=== PATIENT | male | born 1970 | race African-American/Black ===

== ENCOUNTER 2016-05-21 15:16 | Inpatient (IN) | payer MEDICARE, MEDICAID, OTHER ==
[~2016-05-21] VITALS: Ht 188 cm; Wt 114.0 kg
[~2016-05-21 15:16] MED LIST: MESA400C PO; RISP3 PO; TRAZ-147 PO; VITAD1000 PO
[2016-05-21] MEDS ORDERED: QUET25TA PO (15:43)
[2016-05-21 16:00] LABS: BASOPHILS % (AUTO) 0.4 % (0.0-2.0); EOSINOPHILS % (AUTO) 3.3 % (1.0-6.0); HEMATOCRIT 47.1 % (41-53); HEMOGLOBIN 15.4 g/dL (13.5-17.5); LYMPHOCYTES # (AUTO) 2.3 K/uL (1.0-4.8); MEAN CORPUSCULAR HEMOGLOBIN 29.8 pg (26.0-34.0); MEAN CORPUSCULAR HGB CONC 32.6 G/dL (31.0-37.0); MEAN CORPUSCULAR VOLUME 91 fL (80-100); MONOCYTES # (AUTO) 0.4 K/uL (0.1-1.0); MONOCYTES % (AUTO) 7.1 % (2.0-9.0); NEUTROPHILS # (AUTO) 3.3 K/uL (1.8-7.7); NEUTROPHILS % (AUTO) 53.2 % (40.0-70.0); PLATELET COUNT (AUTO) 228 K/uL (150-450); RED BLOOD CELL COUNT(AUTO) 5.16 MIL/uL (4.50-5.90); RED CELL DISTRIBUTION WIDTH 16.2 % (11.5-14.5); WHITE BLOOD COUNT (AUTO) 6.3 K/uL (4.5-11.0)
[2016-05-21 16:13] LABS: ANION GAP 9 mmol/L (8-16); CALCIUM, TOTAL 9.2 mg/dL (8.8-10.5); CARBON DIOXIDE 29 mmol/L (22-29); CHLORIDE 103 mmol/L (98-107); CREATININE 1.14 mg/dL (0.60-1.30); GLOMERULAR FILTR. RATE CALC > 60 mL/min (>60); POTASSIUM 3.3 mmol/L (3.5-5.1); SODIUM SERUM 141 mmol/L (136-145); UREA NITROGEN, BLOOD 3 mg/dL (7-18)
[2016-05-21 16:19] LABS: ALANINE AMINOTRANSFERASE 30 U/L (12-78); ALBUMIN 3.6 g/dL (3.4-5.0); ASPARTATE AMINOTRANSFERASE 21 U/L (15-37); BILIRUBIN,TOTAL 0.2 mg/dL (0.1-1.0); TOTAL PROTEIN, SERUM 7.9 g/dL (6.4-8.2)
[2016-05-21] MEDS ORDERED: HALOPERIDOL 5 MG TABLET PO PRN (19:30)
[2016-05-21] MEDS ORDERED: ZOLPIDEM TARTRATE 10 MG TABLET PO PRN (19:30)
[2016-05-21] MEDS ORDERED: LORazepam 2 MG TABLET PO PRN (19:30)
[2016-05-21] MEDS ORDERED: LORazepam 2 MG TABLET PO ONE (20:00)
[2016-05-21] MEDS ORDERED: DiphenhydrAMINE HCL 50 MG CAPSULE PO ONE (20:00)
[2016-05-21] MEDS ORDERED: HALOPERIDOL 5 MG TABLET PO ONE (20:00)
[2016-05-21 20:41] VITALS: BP 135/95
[2016-05-21] MEDS ORDERED: POTASSIUM CHLORIDE 20 MEQ ER TABLET PO ONE (21:15)
[2016-05-21] MEDS ORDERED: INFLUENZA VIRUS VACCINE QVS 2016-17 (3YR+)/PF 60 MCG/0.5 ML SYRINGE IM ONE (21:15)
[2016-05-22 08:30] VITALS: BP 122/62
[2016-05-22] MEDS ORDERED: BENZOCAINE/MENTHOL LOZENGE [8 LOZENGES/PACKET] MM PRN (12:30)
[2016-05-22] MEDS ORDERED: ONDANSETRON HCL 4 MG TABLET PO PRN (12:30)
[2016-05-22] MEDS ORDERED: ACETAMINOPHEN 325 MG TABLET PO PRN (12:30)
[2016-05-22] MEDS ORDERED: CloNIDine HCL 0.1 MG TABLET PO PRN (12:30)
[2016-05-22] MEDS ORDERED: ALBUTEROL SULFATE HFA 90 MCG/PUFF 8 GM INHALER IH PRN (12:30)
[2016-05-22] MEDS ORDERED: BACITRACIN 28.4 GM OINTMENT TP PRN (12:30)
[2016-05-22] MEDS ORDERED: PETROLATUM,WHITE 71 GM JELLY TP PRN (12:30)
[2016-05-22] MEDS ORDERED: MAG HYDROX/AL HYDROX/SIMETH ES 30 ML SUSPENSION UDCUP PO PRN (12:30)
[2016-05-22] MEDS ORDERED: MAGNESIUM HYDROXIDE SUSPENSION 30 ML UDCUP PO PRN (12:30)
[2016-05-22] MEDS ORDERED: IBUPROFEN 600 MG TABLET PO PRN (12:30)
[2016-05-22] MEDS ORDERED: LOPERAMIDE HCL 2 MG CAPSULE PO PRN (12:30)
[2016-05-22] MEDS: QUEtiapine FUMARATE 200 MG TABLET PO SCH (16:43)
[2016-05-22 16:44] VITALS: BP 129/93
[2016-05-22] MEDS: RisperiDONE 3 MG TABLET PO SCH (16:44)
[2016-05-22] MEDS: TraZODone HCL 100 MG TABLET PO SCH (20:24)
[2016-05-23 08:00] VITALS: BP 134/107
[2016-05-23] MEDS: HYDROCHLOROTHIAZIDE 25 MG TABLET PO SCH (09:08)
[2016-05-23] MEDS: CHOLECALCIFEROL (VIT D3) 1,000 UNITS TABLET PO SCH (09:08)
[2016-05-23] MEDS: RisperiDONE 3 MG TABLET PO SCH ×2 (09:08→16:15)
[2016-05-23] MEDS: QUEtiapine FUMARATE 200 MG TABLET PO SCH ×2 (09:08→16:15)
[2016-05-23] MEDS: ATORVASTATIN CALCIUM 40 MG TABLET PO SCH (09:09)
[2016-05-23 10:00] VITALS: BP 135/94
[2016-05-23 16:44] VITALS: BP 146/95
[2016-05-23] MEDS: TraZODone HCL 100 MG TABLET PO SCH (20:11)
[2016-05-24 08:30] VITALS: BP 130/87
[2016-05-24] MEDS: HYDROCHLOROTHIAZIDE 25 MG TABLET PO SCH (09:10)
[2016-05-24] MEDS: ATORVASTATIN CALCIUM 40 MG TABLET PO SCH (09:10)
[2016-05-24] MEDS: CHOLECALCIFEROL (VIT D3) 1,000 UNITS TABLET PO SCH (09:10)
[2016-05-24] MEDS: RisperiDONE 3 MG TABLET PO SCH ×2 (09:10→16:00)
[2016-05-24] MEDS: QUEtiapine FUMARATE 200 MG TABLET PO SCH ×2 (09:10→16:01)
[2016-05-24 20:05] VITALS: BP 139/75
[2016-05-24] MEDS: TraZODone HCL 100 MG TABLET PO SCH (20:10)
[2016-05-25 08:30] VITALS: BP 158/99
[2016-05-25] MEDS: ATORVASTATIN CALCIUM 40 MG TABLET PO SCH (09:04)
[2016-05-25] MEDS: HYDROCHLOROTHIAZIDE 25 MG TABLET PO SCH (09:04)
[2016-05-25] MEDS: CHOLECALCIFEROL (VIT D3) 1,000 UNITS TABLET PO SCH (09:04)
[2016-05-25] MEDS: RisperiDONE 3 MG TABLET PO SCH ×2 (09:04→15:52)
[2016-05-25] MEDS: QUEtiapine FUMARATE 200 MG TABLET PO SCH ×2 (09:04→15:52)
[2016-05-25 16:02] VITALS: BP 140/98
[2016-05-25] MEDS: TraZODone HCL 100 MG TABLET PO SCH (20:19)
[2016-05-26] MEDS: ATORVASTATIN CALCIUM 40 MG TABLET PO SCH (08:07)
[2016-05-26] MEDS: CHOLECALCIFEROL (VIT D3) 1,000 UNITS TABLET PO SCH (08:07)
[2016-05-26] MEDS: RisperiDONE 3 MG TABLET PO SCH ×2 (08:07→15:55)
[2016-05-26] MEDS: QUEtiapine FUMARATE 200 MG TABLET PO SCH ×2 (08:07→15:55)
[2016-05-26] MEDS: HYDROCHLOROTHIAZIDE 25 MG TABLET PO SCH (08:07)
[2016-05-26 09:52] VITALS: BP 132/79
[2016-05-26 16:53] VITALS: BP 114/84
[2016-05-26] MEDS: TraZODone HCL 100 MG TABLET PO SCH (21:23)
[2016-05-27 08:00] VITALS: BP 102/75
[2016-05-27] MEDS: QUEtiapine FUMARATE 200 MG TABLET PO SCH ×2 (08:13→17:19)
[2016-05-27] MEDS: HYDROCHLOROTHIAZIDE 25 MG TABLET PO SCH (08:13)
[2016-05-27] MEDS: ATORVASTATIN CALCIUM 40 MG TABLET PO SCH (08:13)
[2016-05-27] MEDS: RisperiDONE 3 MG TABLET PO SCH ×2 (08:13→17:19)
[2016-05-27] MEDS: CHOLECALCIFEROL (VIT D3) 1,000 UNITS TABLET PO SCH (08:13)
[2016-05-27 18:16] VITALS: BP 116/73
[2016-05-27] MEDS: TraZODone HCL 100 MG TABLET PO SCH (20:28)
[2016-05-28] MEDS: CHOLECALCIFEROL (VIT D3) 1,000 UNITS TABLET PO SCH (08:26)
[2016-05-28] MEDS: RisperiDONE 3 MG TABLET PO SCH ×2 (08:26→16:29)
[2016-05-28] MEDS: HYDROCHLOROTHIAZIDE 25 MG TABLET PO SCH (08:26)
[2016-05-28] MEDS: QUEtiapine FUMARATE 200 MG TABLET PO SCH ×2 (08:26→16:28)
[2016-05-28] MEDS: ATORVASTATIN CALCIUM 40 MG TABLET PO SCH (08:27)
[2016-05-28 09:39] VITALS: BP 124/65
[2016-05-28 16:00] VITALS: BP 118/72
[2016-05-28] MEDS: TraZODone HCL 100 MG TABLET PO SCH (20:45)
[2016-05-29] MEDS: HYDROCHLOROTHIAZIDE 25 MG TABLET PO SCH (08:24)
[2016-05-29] MEDS: QUEtiapine FUMARATE 200 MG TABLET PO SCH (08:25)
[2016-05-29] MEDS: RisperiDONE 3 MG TABLET PO SCH (08:25)
[2016-05-29] MEDS: ATORVASTATIN CALCIUM 40 MG TABLET PO SCH (08:25)
[2016-05-29] MEDS: CHOLECALCIFEROL (VIT D3) 1,000 UNITS TABLET PO SCH (08:26)
[2016-05-29 09:10] VITALS: BP 140/109
[2016-05-29 18:14] VITALS: BP 129/75
[2016-05-29] MEDS: TraZODone HCL 100 MG TABLET PO SCH (20:18)
[2016-05-30] MEDS: HYDROCHLOROTHIAZIDE 25 MG TABLET PO SCH (08:41)
[2016-05-30] MEDS: ATORVASTATIN CALCIUM 40 MG TABLET PO SCH (08:41)
[2016-05-30] MEDS: CHOLECALCIFEROL (VIT D3) 1,000 UNITS TABLET PO SCH (08:41)
[2016-05-30] MEDS: RisperiDONE 3 MG TABLET PO SCH ×2 (08:43→16:48)
[2016-05-30] MEDS: QUEtiapine FUMARATE 200 MG TABLET PO SCH ×2 (08:43→16:48)
[2016-05-30 08:47] VITALS: BP 128/84
[2016-05-30 18:48] VITALS: BP 124/83
[2016-05-30] MEDS: TraZODone HCL 100 MG TABLET PO SCH (20:11)
[2016-05-31 08:30] VITALS: BP 126/78
[2016-05-31] MEDS: HYDROCHLOROTHIAZIDE 25 MG TABLET PO SCH (09:09)
[2016-05-31] MEDS: RisperiDONE 3 MG TABLET PO SCH ×2 (09:09→17:12)
[2016-05-31] MEDS: CHOLECALCIFEROL (VIT D3) 1,000 UNITS TABLET PO SCH (09:09)
[2016-05-31] MEDS: QUEtiapine FUMARATE 200 MG TABLET PO SCH ×2 (09:12→17:12)
[2016-05-31] MEDS: ATORVASTATIN CALCIUM 40 MG TABLET PO SCH (09:17)
[2016-05-31 17:05] VITALS: BP 124/78
[2016-05-31] MEDS: TraZODone HCL 100 MG TABLET PO SCH (20:57)
[2016-06-01 08:30] VITALS: BP 153/94
[2016-06-01] MEDS: ATORVASTATIN CALCIUM 40 MG TABLET PO SCH (09:00)
[2016-06-01] MEDS: QUEtiapine FUMARATE 200 MG TABLET PO SCH ×3 (09:00→16:10)
[2016-06-01] MEDS: CHOLECALCIFEROL (VIT D3) 1,000 UNITS TABLET PO SCH (09:00)
[2016-06-01] MEDS: HYDROCHLOROTHIAZIDE 25 MG TABLET PO SCH (09:00)
[2016-06-01] MEDS: RisperiDONE 3 MG TABLET PO SCH ×3 (09:00→16:10)
[2016-06-01 19:24] VITALS: BP 147/96
[2016-06-01] MEDS: TraZODone HCL 100 MG TABLET PO SCH (20:30)
[2016-06-02 08:08] VITALS: BP 133/85
[2016-06-02] MEDS: QUEtiapine FUMARATE 200 MG TABLET PO SCH ×2 (08:25→16:11)
[2016-06-02] MEDS: RisperiDONE 3 MG TABLET PO SCH ×2 (08:26→16:11)
[2016-06-02] MEDS: CHOLECALCIFEROL (VIT D3) 1,000 UNITS TABLET PO SCH (08:26)
[2016-06-02] MEDS: HYDROCHLOROTHIAZIDE 25 MG TABLET PO SCH (08:26)
[2016-06-02] MEDS: ATORVASTATIN CALCIUM 40 MG TABLET PO SCH (08:26)
[2016-06-02 17:00] VITALS: BP 138/94
[2016-06-02] MEDS: TraZODone HCL 100 MG TABLET PO SCH (20:13)
[2016-06-03 08:00] VITALS: BP 121/84
[2016-06-03] MEDS: QUEtiapine FUMARATE 200 MG TABLET PO SCH ×2 (08:06→16:00)
[2016-06-03] MEDS: ATORVASTATIN CALCIUM 40 MG TABLET PO SCH (08:06)
[2016-06-03] MEDS: HYDROCHLOROTHIAZIDE 25 MG TABLET PO SCH (08:06)
[2016-06-03] MEDS: RisperiDONE 3 MG TABLET PO SCH ×2 (08:06→16:00)
[2016-06-03] MEDS: CHOLECALCIFEROL (VIT D3) 1,000 UNITS TABLET PO SCH (08:07)
[2016-06-03 16:22] VITALS: BP 126/90
[2016-06-03] MEDS ORDERED: RISP3 PO (19:58)
[2016-06-03] MEDS ORDERED: QUET200T PO (19:58)
[2016-06-03] MEDS ORDERED: TRAZ-147 PO (19:59)
[2016-06-03] MEDS: TraZODone HCL 100 MG TABLET PO SCH (20:07)
[2016-06-04] MEDS ORDERED: ATOR40TA28 PO (08:23)
[2016-06-04] MEDS ORDERED: HYDR25TA PO (08:24)
[2016-06-04] MEDS ORDERED: VITAD1000 PO (08:24)
[2016-06-04 08:30] VITALS: BP 135/98
[2016-06-04] MEDS: RisperiDONE 3 MG TABLET PO SCH (09:28)
[2016-06-04] MEDS: QUEtiapine FUMARATE 200 MG TABLET PO SCH (09:28)
[2016-06-04] MEDS: CHOLECALCIFEROL (VIT D3) 1,000 UNITS TABLET PO SCH (09:28)
[2016-06-04] MEDS: HYDROCHLOROTHIAZIDE 25 MG TABLET PO SCH (09:30)
[2016-06-04] MEDS: ATORVASTATIN CALCIUM 40 MG TABLET PO SCH (09:30)
[2016-06-04 11:06] VITALS: BP 111/74
== END 2016-06-04 16:10 | disposition home or self-care (01) | DRG 885 ==
LOC: EEVIPCON 15:16 → EMS 15:17 → 3EX 19:46
PROVIDERS: ADMIT Psychiatry & Neurology Psychiatry; ATTEND Psychiatry & Neurology Psychiatry
DX: F20.0 Paranoid schizophrenia (principal); R45.850 Homicidal ideations; I10 Essential (primary) hypertension; E78.5 Hyperlipidemia, unspecified; G47.00 Insomnia, unspecified; E66.9 Obesity, unspecified; E87.6 Hypokalemia; E55.9 Vitamin D deficiency, unspecified; K59.00 Constipation, unspecified; F12.90 Cannabis use, unspecified, uncomplicated; F17.210 Nicotine dependence, cigarettes, uncomplicated; Z28.21 Immunization not carried out because of patient refusal; Z91.14 Patient's other noncompliance with medication regimen; Z79.899 Other long term (current) drug therapy; Z68.32 Body mass index [BMI] 32.0-32.9, adult; Z71.51 Drug abuse counseling and surveillance of drug abuser; Z71.6 Tobacco abuse counseling
CPT/HCPCS: 84132; 99285; G0480